=== PATIENT | female | born 2000 | race Caucasian/White ===

== ENCOUNTER 2023-10-24 07:01 | Day surgery (SDC) | payer BC ==
[~2023-10-24] VITALS: Ht 179.1 cm; Wt 62.2 kg
[~2023-10-24 07:01] MED LIST: LR 1,000 ML IV SCH; Ondansetron 4 MG/2 ML VIAL IV PRN
[2023-10-24 07:25] VITALS: BP 117/77; PULSE 63; TEMP 97
--- NOTE | 2023-10-24 07:45 | NUR ---
The patient ambulated back to [place] [facility] independently using a steady gait and appeared to tolerate the activity well. Vital signs obtained. Consent signed. 20G IV started in right anecubital on 2nd attempt, LR infusing without difficulty. Assessment completed. Home medications reconcilled. Warm blanket provided. Mother at bedside. Call light is within reach. The patient denies any further needs at this time.
[2023-10-24] MEDS ORDERED: Lidocaine PF 2% (20 MG/ML) 5 ML VIAL ONE (08:39)
[2023-10-24] MEDS ORDERED: Glycopyrrolate 0.2 MG/ML 1 ML VIAL ONE (08:39)
[2023-10-24 08:57] VITALS: BP 120/73; PULSE 86; TEMP 97.1
[2023-10-24 09:00] VITALS: BP 98/78; PULSE 73
[2023-10-24 09:15] VITALS: BP 160/73; PULSE 59
--- NOTE | 2023-10-24 13:34 | NUR ---
0857 PT RETURNED TO [facility] 1 POST PROCEDURE. RECEIVED REPORT FROM YOLANDA SADLER. PT ALERT AND ORIENTED, BREATHING EVEN AND UNLABORED, ABLE TO AMBULATE FROM CART TO RECLINER. 0907 PT GIVEN A MUFFIN AND JUICE FOR PO TRIAL. TOLERATED WELL. 0995 PROVIDER IN TO SPEAK WITH PT ABOUT FINDINGS AND PLAN FOR CARE. 0921 PRINTED PHYSICIAN DISCHARGE INSTRUCTIONS AND PATIENT EDUCATION MATERIALS REVIEWED W/ PT AND HER MOTHER. QUESTIONS INVITED AND ANSWERED. 0965 PT TO LOBBY VIA WHEEL CHAIR FOR RIDE HOME WITH HER MOTHER VIA POV.
== END 2023-10-24 13:38 | disposition home or self-care (01) ==
LOC: SDCO 07:01
DX: K62.89 Other specified diseases of anus and rectum (principal); K59.04 Chronic idiopathic constipation; K92.1 Melena; K64.4 Residual hemorrhoidal skin tags
CPT/HCPCS: J2704; J7120